=== PATIENT | female | born 1970 | race American Indian/Alaskan Native ===

== ENCOUNTER 2019-08-24 05:55 | Observation (INO) | payer MEDICARE ==
--- NOTE | 2019-08-24 06:39 | XRay Report ---
CHEST 1 VIEW INDICATION / CLINICAL INFORMATION: Chest Pain. COMPARISON: None available. FINDINGS: SUPPORT DEVICES: None. HEART / MEDIASTINUM: No significant abnormality. LUNGS / PLEURA: No significant pulmonary or pleural abnormality.. No pneumothorax. ADDITIONAL FINDINGS: No significant additional findings. IMPRESSION: 1. No acute findings. Signer Name: Rickie Cronin MD Signed: 08/24/2019 6:34 AM Workstation Name: [id number]
[2019-08-24 06:59] LABS: Hematocrit 41.6 % (30.3-42.9); Hemoglobin 13.6 gm/dl (10.1-14.3); Mean Corpuscular HGB Conc 33 % (30-34); Mean Corpuscular Volume 87 fl (79-97); Platelet Count 415 K/mm3 (140-440); Red Blood Count 4.79 M/mm3 (3.65-5.03); Red Cell Distribution Width 12.9 % (13.2-15.2)
[2019-08-24 07:21] LABS: BUN/Creatinine Ratio 14; Blood Urea Nitrogen 13 mg/dL (7-17); Calcium 9.9 mg/dL (8.4-10.2); Hemolysis Index 21
[2019-08-24 08:20] LABS: Basophils % (Manual) 0 % (0.0-1.8); Total Cells Counted 100
[2019-08-24 08:21] LABS: Platelet Estimate Consistent w Auto; RBC Morphology Normal
[2019-08-24] MEDS ORDERED: IPRATROPIUM/ALBUTEROL SULFATE 3 ML AMPUL.NEB IH ONE ×3 (11:13→13:16)
[2019-08-24] MEDS ORDERED: MORPHINE 2 MG/1 ML INJ IV ONE (11:17)
[2019-08-24] MEDS ORDERED: ONDANSETRON 4 MG/2 ML INJ IV ONE (11:17)
[2019-08-24] MEDS ORDERED: methylPREDNISolone Sod Succinate 125 MG/2 ML INJ IV ONE (11:17)
[2019-08-24 11:43] LABS: INR 1.04 (0.87-1.13)
[2019-08-24 11:44] LABS: Partial Thromboplastin Time 30.9 Sec. (24.2-36.6)
[2019-08-24 12:03] LABS: Creatine Kinase MB 2.4 ng/mL (0.0-4.0)
[2019-08-24 12:04] LABS: Alanine Aminotransferase 20 units/L (7-56); Albumin 4.5 g/dL (3.9-5)
[2019-08-24 12:07] LABS: Bilirubin,Direct < 0.2 mg/dL (0-0.2)
--- NOTE | 2019-08-24 13:11 | Cat Scan Report ---
CT chest with contrast INDICATION : chest pain TECHNIQUE: 100 mL of intravenous contrast administered. All CT scans at this location are performed using CT dose reduction for ALARA by means of automated exposure control. COMPARISON: Radiograph performed earlier the same day. FINDINGS: Lungs are clear without evidence of focal pulmonary consolidation or edema. No discrete pulmonary mas s or nodule. No pleural effusion or pneumothorax. No filling defect within the pulmonary arteries to suggest the presence of pulmonary embolism. Heart is within normal limits in terms of size. No evidence of pericardial effusion. No mediastinal or axil navjot lymphadenopathy. Osseous structures show no evidence acute fracture or aggressive osseous destructive lesion. Limited evaluation of the upper abdomen is unremarkable. IMPRESSION: No acute findings within the chest. Specifically, no evidence of pulmonary embolism. Signer Name: Ludin Vasquez MD Signed: 08/24/2019 1:06 PM Workstation Name: [id number]
[2019-08-24] MEDS ORDERED: BENZONATATE 100 MG CAP PO ONE (13:13)
--- NOTE | 2019-08-24 14:04 | Emergency Department Report ---
ED General Adult HPI - General Chief complaint: Chest Pain Stated complaint: CHEST TIGHTNESS/LEG PAIN Time Seen by Provider: 08/24/19 11:04 Source: patient Mode of arrival: Ambulatory Limitations: No Limitations - History of Present Illness Initial comments: This is a 48-year-old female with history of COPD who presents with a complaint of chest pain, nonproductive cough and shortness of breath. The chest pain is somewhat pleuritic. She is been placed on Cipro and then a Z-Sarbjit by her primary care provider Dr. Harvey. She states that she hasn't eaten wheezing. She denies fever or chills. She also states that she had a "partial nephrectomy" in the past. She gives a history of prior anticoagulation for DVT/PE. She has not been on Coumadin for quite some time. I'm not certain that she has informed her primary care doctor of her previous heavy coagulation. She complains of right flank pain and right thigh pain. -: Gradual, week(s) Location: chest, right, lower extremity Radiation: non-radiation Severity scale (0 -10): 5 Quality: other (heaviness) Consistency: intermittent Improves with: none Worsens with: none Associated Symptoms: shortness of breath Treatments Prior to Arrival: none - Related Data Allergies Allergy/AdvReac Type Severity Reaction Status Date / Time No Known Allergies Allergy Verified 08/24/19 13:16 ED Review of Systems ROS: Stated complaint: CHEST TIGHTNESS/LEG PAIN Other details as noted in HPI Constitutional: denies: chills, fever Eyes: denies: eye pain, eye discharge, vision change ENT: denies: ear pain, throat pain Respiratory: cough, shortness of breath, wheezing Cardiovascular: chest pain. denies: palpitations Endocrine: no symptoms reported Gastrointestinal: denies: abdominal pain, nausea, diarrhea Genitourinary: denies: urgency, dysuria, discharge Musculoskeletal: back pain (right flank pain), other (thigh pain). denies: joint swelling, arthralgia Skin: denies: rash, lesions Neurological: denies: headache, weakness, paresthesias Psychiatric: denies: anxiety, depression Hematological/Lymphatic: denies: easy bleeding, easy bruising ED Past Medical Hx - Past Medical History Previous Medical History?: Yes Hx Diabetes: (borderline) Hx Pulmonary Embolism: Yes Hx Asthma: Yes Hx COPD: Yes Additional medical history: renal cell cancer, IC - Surgical History Past Surgical History?: Yes Additional Surgical History: part of kidney removed, sinus surgery, ankle surgery, hysterectomy. - Social History Smoking Status: Never Smoker Substance Use Type: Alcohol ED Physical Exam - General Limitations: No Limitations General appearance: alert, anxious - Head Head exam: Present: atraumatic, normocephalic - Eye Eye exam: Present: normal appearance. Absent: scleral icterus - ENT ENT exam: Present: mucous membranes moist - Neck Neck exam: Present: normal inspection. Absent: tenderness, meningismus - Respiratory Respiratory exam: Present: normal lung sounds bilaterally, wheezes (end expiratory). Absent: respiratory distress, accessory muscle use - Cardiovascular Cardiovascular Exam: Present: normal rhythm, tachycardia. Absent: systolic murmur, diastolic murmur, rubs, gallop - GI/Abdominal GI/Abdominal exam: Present: soft, normal bowel sounds. Absent: distended, tenderness, guarding, rebound, rigid - Extremities Exam Extremities exam: Present: normal inspection, full ROM, normal capillary refill. Absent: tenderness, pedal edema, joint swelling, calf tenderness - Back Exam Back exam: Present: normal inspection - Neurological Exam Neurological exam: Present: alert, oriented X3, CN II-XII intact. Absent: motor sensory deficit - Psychiatric Psychiatric exam: Present: normal affect, normal mood - Skin Skin exam: Present: warm, dry, intact, normal color. Absent: rash ED Course Vital Signs 08/24/19 08/24/19 08/24/19 05:57 11:16 11:25 Temperature 98.8 F Pulse Rate 105 H Pulse Rate [ 80 Right Lower Lobe] Respiratory 20 20 Rate Respiratory 18 Rate [Right Lower Lobe] Blood Pressure 136/95 O2 Sat by Pulse 97 Oximetry - Reevaluation(s) Reevaluation #1: Patient's labs showed a moderately elevated white blood cell count. Thus far no focus of infection has been noted. She does have a dry nonproductive cough. She is noted to have a persistent resting tachycardia of 115 to 120. A thyroid profile will be ordered. Case discussed with Dr. Sosa. Patient is admitted primarily for her chest pain for further diagnostic workup. Her PE study was negative. Her dimer was somewhat elevated. She was given nebs for her COPD exacerbation and Solu-Medrol. 08/24/19 14:40 ED Medical Decision Making - Lab Data Result diagrams: 08/24/19 06:42 08/24/19 06:42 Laboratory Results - last 24 hr 08/24/19 08/24/19 08/24/19 06:42 06:42 09:26 WBC 14.6 H RBC 4.79 Hgb 13.6 Hct 41.6 MCV 87 MCH 29 MCHC 33 RDW 12.9 L Plt Count 415 Lymph # [employer] Add Manual Diff Complete Total Counted 100 Seg Neuts % (Manual) 54.0 Band Neutrophils % 0 Lymphocytes % (Manual) 33.0 Reactive Lymphs % (Man) 0 Monocytes % (Manual) 4.0 Eosinophils % (Manual) 9.0 H Basophils % (Manual) 0 Metamyelocytes % 0 Myelocytes % 0 Promyelocytes % 0 Blast Cells % 0 Nucleated RBC % Not Reportable Seg Neutrophils # Man 7.9 H Band Neutrophils # 0.0 Lymphocytes # (Manual) 4.8 Abs React Lymphs (Man) 0.0 Monocytes # (Manual) 0.6 Eosinophils # (Manual) 1.3 H Basophils # (Manual) 0.0 Metamyelocytes # 0.0 Myelocytes # 0.0 Promyelocytes # 0.0 Blast Cells # 0.0 WBC Morphology Not Reportable Hypersegmented Neuts Not Reportable Hyposegmented Neuts Not Reportable Hypogranular Neuts Not Reportable Smudge Cells Not Reportable Toxic Granulation Not Reportable Toxic Vacuolation Not Reportable Dohle Bodies Not Reportable Pelger-Huet Anomaly Not Reportable Lacey Rods Not Reportable Platelet Estimate Consistent w auto Clumped Platelets Not Reportable Plt Clumps, EDTA Not Reportable Large Platelets Not Reportable Giant Platelets Not Reportable Platelet Satelliting Not Reportable Plt Morphology Comment Not Reportable RBC Morphology Normal Dimorphic RBCs Not Reportable Polychromasia Not Reportable Hypochromasia Not Reportable Poikilocytosis Not Reportable Anisocytosis Not Reportable Microcytosis Not Reportable Macrocytosis Not Reportable Spherocytes Not Reportable Pappenheimer Bodies Not Reportable Sickle Cells Not Reportable Target Cells Not Reportable Tear Drop Cells Not Reportable Ovalocytes Not Reportable Helmet Cells Not Reportable Kumar-[place] Bodies Not Reportable [place] Rings Not Reportable Jaxon Cells Not Reportable Bite Cells Not Reportable Crenated Cell Not Reportable Elliptocytes Not Reportable Acanthocytes (Spur) Not Reportable Rouleaux Not Reportable Hemoglobin C Crystals Not Reportable Schistocytes Not Reportable Malaria parasites Not Reportable Pedro Bodies Not Reportable Hem Pathologist Commnt No PT INR APTT Sodium 141 Potassium 4.1 Chloride 102.8 Carbon Dioxide 24 Anion Gap 18 BUN 13 Creatinine 0.9 Estimated GFR > 60 BUN/Creatinine Ratio 14 Glucose 110 H Calcium 9.9 Magnesium Total Bilirubin Direct Bilirubin Indirect Bilirubin AST ALT Alkaline Phosphatase Total Creatine Kinase CK-MB (CK-2) CK-MB (CK-2) Rel Index Troponin T < 0.010 < 0.010 NT-Pro-B Natriuret Pep Total Protein Albumin Albumin/Globulin Ratio Urine Color Urine Turbidity Urine pH Ur Specific [place] Urine Protein Urine Glucose (UA) Urine Ketones Urine Blood Urine Nitrite Urine Bilirubin Urine Urobilinogen Ur Leukocyte Esterase Urine WBC (Auto) Urine RBC (Auto) U Epithel Cells (Auto) 08/24/19 08/24/19 08/24/19 11:26 11:26 12:59 WBC RBC Hgb Hct MCV MCH MCHC RDW Plt Count Lymph # Add Manual Diff Total Counted Seg Neuts % (Manual) Band Neutrophils % Lymphocytes % (Manual) Reactive Lymphs % (Man) Monocytes % (Manual) Eosinophils % (Manual) Basophils % (Manual) Metamyelocytes % Myelocytes % Promyelocytes % Blast Cells % Nucleated RBC % Seg Neutrophils # Man Band Neutrophils # Lymphocytes # (Manual) Abs React Lymphs (Man) Monocytes # (Manual) Eosinophils # (Manual) Basophils # (Manual) Metamyelocytes # Myelocytes # Promyelocytes # Blast Cells # WBC Morphology Hypersegmented Neuts Hyposegmented Neuts Hypogranular Neuts Smudge Cells Toxic Granulation Toxic Vacuolation Dohle Bodies Pelger-Huet Anomaly Lacey Rods Platelet Estimate Clumped Platelets Plt Clumps, EDTA Large Platelets Giant Platelets Platelet Satelliting Plt Morphology Comment RBC Morphology Dimorphic RBCs Polychromasia Hypochromasia Poikilocytosis Anisocytosis Microcytosis Macrocytosis Spherocytes Pappenheimer Bodies Sickle Cells Target Cells Tear Drop Cells Ovalocytes Helmet Cells Kumar-[place] Bodies [place] Rings Jaxon Cells Bite Cells Crenated Cell Elliptocytes Acanthocytes (Spur) Rouleaux Hemoglobin C Crystals Schistocytes Malaria parasites Pedro Bodies Hem Pathologist Commnt PT 13.7 INR 1.04 APTT 30.9 Sodium Potassium Chloride Carbon Dioxide Anion Gap BUN Creatinine Estimated GFR BUN/Creatinine Ratio Glucose Calcium Magnesium 2.20 Total Bilirubin 0.40 Direct Bilirubin < 0.2 Indirect Bilirubin 0.2 AST 18 ALT 20 Alkaline Phosphatase 86 Total Creatine Kinase 345 H CK-MB (CK-2) 2.4 CK-MB (CK-2) Rel Index 0.6 Troponin T < 0.010 NT-Pro-B Natriuret Pep 11.06 Total Protein 7.7 Albumin 4.5 Albumin/Globulin Ratio 1.4 Urine Color Urine Turbidity Urine pH Ur Specific [place] Urine Protein Urine Glucose (UA) Urine Ketones Urine Blood Urine Nitrite Urine Bilirubin Urine Urobilinogen Ur Leukocyte Esterase Urine WBC (Auto) Urine RBC (Auto) U Epithel Cells (Auto) 08/24/19 Unknown WBC RBC Hgb Hct MCV MCH MCHC RDW Plt Count Lymph # Add Manual Diff Total Counted Seg Neuts % (Manual) Band Neutrophils % Lymphocytes % (Manual) Reactive Lymphs % (Man) Monocytes % (Manual) Eosinophils % (Manual) Basophils % (Manual) Metamyelocytes % Myelocytes % Promyelocytes % Blast Cells % Nucleated RBC % Seg Neutrophils # Man Band Neutrophils # Lymphocytes # (Manual) Abs React Lymphs (Man) Monocytes # (Manual) Eosinophils # (Manual) Basophils # (Manual) Metamyelocytes # Myelocytes # Promyelocytes # Blast Cells # WBC Morphology Hypersegmented Neuts Hyposegmented Neuts Hypogranular Neuts Smudge Cells Toxic Granulation Toxic Vacuolation Dohle Bodies Pelger-Huet Anomaly Lacey Rods Platelet Estimate Clumped Platelets Plt Clumps, EDTA Large Platelets Giant Platelets Platelet Satelliting Plt Morphology Comment RBC Morphology Dimorphic RBCs Polychromasia Hypochromasia Poikilocytosis Anisocytosis Microcytosis Macrocytosis Spherocytes Pappenheimer Bodies Sickle Cells Target Cells Tear Drop Cells Ovalocytes Helmet Cells Kumar-[place]amo Bodies [place] Rings Jaxon Cells Bite Cells Crenated Cell Elliptocytes Acanthocytes (Spur) Rouleaux Hemoglobin C Crystals Schistocytes Malaria parasites Pedro Bodies Hem Pathologist Commnt PT INR APTT Sodium Potassium Chloride Carbon Dioxide Anion Gap BUN Creatinine Estimated GFR BUN/Creatinine Ratio Glucose Calcium Magnesium Total Bilirubin Direct Bilirubin Indirect Bilirubin AST ALT Alkaline Phosphatase Total Creatine Kinase CK-MB (CK-2) CK-MB (CK-2) Rel Index Troponin T NT-Pro-B Natriuret Pep Total Protein Albumin Albumin/Globulin Ratio Urine Color Yellow Urine Turbidity Clear Urine pH 6.0 Ur Specific [place] TNR Urine Protein <15 mg/dl Urine Glucose (UA) Neg Urine Ketones Tr Urine Blood Neg Urine Nitrite Neg Urine Bilirubin Neg Urine Urobilinogen < 2.0 Ur Leukocyte Esterase Neg Urine WBC (Auto) 1.0 Urine RBC (Auto) 1.0 U Epithel Cells (Auto) 9.0 - EKG Data -: EKG Interpreted by Ar EKG shows normal: sinus rhythm, axis, intervals, QRS complexes, ST-T waves Rate: normal - EKG Data Interpretation: normal EKG - Radiology Data Radiology results: report reviewed (CTA no acute findings) Critical care attestation.: If time is entered above; I have spent that time in minutes in the direct care of this critically ill patient, excluding procedure time. ED Disposition Clinical Impression: COPD exacerbation Chest pain Qualifiers: Chest pain type: unspecified Qualified Code(s): R07.9 - Chest pain, unspecified Disposition: OP ADMIT IP TO THIS HOSP Is pt being admited?: Yes Does the pt Need Aspirin: Yes Condition: Stable Instructions: Chest Pain (ED), Chronic Obstructive Pulmonary Disease (ED) Referrals: NITISH HARVEY MD [Primary Care Provider] - 3-5 Days Time of Disposition: 14:42
[2019-08-24 14:10] LABS: Bilirubin,Urine NEG (Negative); Blood,Urine NEG (Negative); Color,Urine Yellow (Yellow); Protein,Urine <15 mg/dL mg/dL (Negative); Urobilinogen,Urine < 2.0 mg/dL (<2.0)
[2019-08-24] MEDS ORDERED: ASPIRIN 325 MG TAB PO ONE (14:42)
[2019-08-24] MEDS ORDERED: PANTOPRAZOLE 40 MG INJ IV ONE ×2 (14:43→15:57)
[2019-08-24 15:55] LABS: Free T4 (Free Thyroxine) 1.53 ng/dL (0.76-1.46)
[2019-08-24] MEDS ORDERED: ASPIRIN 325 MG TAB ONE (15:57)
[2019-08-24] MEDS: oxyCODONE /ACETAMINOPHEN 5-325MG TAB PO PRN (21:36)
[2019-08-24] MEDS: methylPREDNISolone Sod Succinate 40 MG/1 ML INJ IV SCH (23:28)
[2019-08-24] MEDS: ALPRAZolam 1 MG TAB PO SCH (23:33)
[2019-08-25] MEDS ORDERED: IPRATROPIUM/ALBUTEROL SULFATE 3 ML AMPUL.NEB IH SCH
[2019-08-25] MEDS: oxyCODONE /ACETAMINOPHEN 5-325MG TAB PO PRN ×2 (03:55→10:49)
[2019-08-25] MEDS: methylPREDNISolone Sod Succinate 40 MG/1 ML INJ IV SCH ×2 (05:34→14:02)
[2019-08-25] MEDS: ALBUTEROL 2.5 MG/3 ML NEBU IH PRN ×2 (05:50→18:02)
--- NOTE | 2019-08-25 06:57 | Event Note ---
Date: 08/24/19 See H/p in reports COPD exacerbation
[2019-08-25] MEDS ORDERED: ESTRADIOL 0.05 MG TP SCH (07:15)
[2019-08-25] MEDS ORDERED: METHOTREXATE 10 MG PO SCH (08:00)
[2019-08-25] MEDS: IPRATROPIUM/ALBUTEROL SULFATE 3 ML AMPUL.NEB IH SCH ×2 (08:10→14:29)
--- NOTE | 2019-08-25 08:12 | History and Physical Report ---
CHIEF COMPLAINT: 1. Chest pain. 2. Shortness of breath and cough productive of sputum. HISTORY OF PRESENT ILLNESS: A 48-year-old -Stateless female well known to me from office, comes in for cough and shortness of breath. Cough productive of mucoid to yellow sputum. She was recently given a Z-KATIE by me, but no improvement. The patient has been having tightness in the chest. No chest pain. The patient had partial nephrectomy in the past. The patient also has a history of PE/DVT in the past, for which she was on anticoagulation, but not on anticoagulation. Also, complains of right flank pain and right thigh pain. The main complaint is shortness of breath, wheezing and cough productive of mucoid to yellow sputum. PAST MEDICAL HISTORY: Significant for type 2 diabetes, hypertension, asthma, COPD, history of renal cell cancer. Also, interstitial cystitis. PAST SURGICAL HISTORY: Part of kidney removed, sinus surgery, ankle surgery, hysterectomy. SOCIAL HISTORY: Does not smoke. Alcohol occasionally. FAMILY HISTORY: Hypertension. REVIEW OF SYSTEMS: Significant for cough productive of mucoid sputum to severe shortness of breath and wheezing. PHYSICAL EXAMINATION: GENERAL: Middle-aged female, cooperative during examination. VITAL SIGNS: Blood pressure is 139/83, temperature is 98.3, pulse is 101, respirations are 15, sats are 97%. HEENT: Unremarkable. Pupils equal and reactive. NECK: Supple, no lymphadenopathy, no thyromegaly. LUNGS: Clear to auscultation and percussion. Good air entry. CARDIOVASCULAR SYSTEM: S1, S2 heard. No gallop, no murmur, no rub. Apical impulse in left fifth intercostal space and midclavicular line. RESPIRATORY SYSTEM: Bilateral inspiratory and expiratory rhonchi present. ABDOMEN: Soft and benign. No hepatosplenomegaly. No guarding, no rigidity. Hernial orifices are normal. EXTREMITIES: Good pedal pulses. No pedal edema. CENTRAL NERVOUS SYSTEM: Alert and oriented x 4, nonfocal exam. SKIN: Normal. LABORATORY DATA: White count of 14,600, H and H is 13.6 and 41.6. Platelet count is 415,000. Electrolytes are normal. Glucose is slightly high at 110. CK is 345. LFTs are normal. TSH is normal. Urine normal. Chest x-ray shows no acute findings. CTA of the chest shows no PE. EKG normal sinus rhythm. ASSESSMENT AND PLAN: 1. Chronic obstructive pulmonary disease exacerbation. The patient is initiated on intravenous Levaquin, intravenous Solu-Medrol and DuoNeb around the clock. 2. Respiratory failure. The patient is tachypneic. Sats were low initially which have improved 3. RA -- Continue methotrexate. 4. Vitamin D deficiency. Continue cholecalciferol. 5. Gastroesophageal reflux disease. Continue Nexium. 6. Estrogen deficiency. Continue estradiol. 7. Hypertension. Continue antihypertensives. 8. Deep venous thrombosis prophylaxis. Heparin 5000 q. 12. 9. Generalized anxiety disorder. Continue Xanax. 10. Chronic pain. Continue Percocet. JOB# [id number] STEPHENIE/DUSTIN GARCIA
[2019-08-25] MEDS ORDERED: FOLIC ACID 1 MG TAB PO SCH (10:00)
[2019-08-25] MEDS ORDERED: PANTOPRAZOLE 40 MG TAB PO SCH (10:00)
[2019-08-25] MEDS ORDERED: NON-FORMULARY EACH (Esomeprazole Magnesium [Nexium] 40 MG) PO SCH (10:00)
[2019-08-25] MEDS: ALPRAZolam 1 MG TAB PO SCH (10:50)
[2019-08-25] MEDS ORDERED: SODIUM CHLORIDE 0.45% IV SCH ×2 (12:00)
--- NOTE | 2019-08-25 16:02 | Discharge Summary ---
Providers - Providers Date of Admission: 08/24/19 14:43 Date of discharge: 08/25/19 Attending physician: JOSE ARANDA Primary care physician: NITISH HARVEY Hospitalization Condition: Stable Hospital course: Patient is a 48 yo woman with a history of COPD, anxiety, Renal Cell cancer s/p right partial nephrectomy, asthma and DM type who presents with multiple complaints. Right sided chest pains and coughing. She has multiple somatic compliants. Discharge Diagnoses: -Acute anxiety disorder -AE COPD, mild -No respiratory failure -MDD: she took herself off zoloft and her symptoms are worse Disposition: DC-01 TO HOME OR SELFCARE Time spent for discharge: 35 minutes Core Measure Documentation - Palliative Care Palliative Care/ Comfort Measures: Not Applicable - Core Measures Any of the following diagnoses?: none - VTE Discharge Requirements Deep Vein Thrombosis/Pulmonary Embolism Present on Admission: No Has pt received <5 days of overlap therapy or INR<2.0: No Anticoagulant overlap therapy prescribed at discharge: No Contraindication No Overlap Therapy order at DC: Not Indicated Exam - Physical Exam Narrative exam: Gen: WDWN, NAD, Awake, Alert, Orientated HEENT: NCAT, EOMI, PERRL, OP Clear Neck: supple, no adenopathy, no thyromegaly, no JVD CVS/Heart: RRR, normal S1S2, pulses present bilaterally Chest/Lungs: CTA B, Symmetrical chest expansion, good air entry bilaterally GI/Abdomen: soft, NTND, good bowel sounds, no guarding or rebound /Bladder: no suprapubic tenderness, no CVA or paraspinal tenderness Extermity/Skin: no c/c/e, no obvious rash MSK: FROM x 4 Neuro: CN 2-12 grossly intact, no new focal deficits Psych: calm - Constitutional Vitals: Temp Pulse Resp BP Pulse Ox 98.0 F 111 H 20 146/87 96 08/25/19 11:43 08/25/19 14:29 08/25/19 14:29 08/25/19 11:43 08/25/19 11:43 Plan Activity: other (no strenous activity unless cleared activity) Diet: low salt Follow up with: NITISH HARVEY MD [Primary Care Provider] - 3-5 Days Prescriptions: levoFLOXacin [Levaquin] 750 mg PO QDAY #7 tablet methylPREDNISolone [Medrol 4MG DOSEPAK (21 tabs)] 1 dose PO DAILY #1 tab.ds.pk oxyCODONE /ACETAMINOPHEN [Percocet 5/325 mg] 1 tab PO Q6H PRN #15 tablet PRN Reason: Pain , Severe (7-10) ALBUTEROL NEB's [Proventil 0.083% NEBS] 2.5 mg IH QID PRN #30 PRN Reason: Wheezing Benzonatate [Tessalon Perles] 100 mg PO Q8HR PRN #15 capsule PRN Reason: Cough ALPRAZolam [Xanax TAB] 1 mg PO BID #14 tablet Sertraline [Zoloft] 25 mg PO QDAY #30 tab Ipratropium/Albuterol Sulfate [DUONEB *Not for PRN Use*] 1 ampul IH TIDRT #30 ampul.neb
[2019-08-25] MEDS ORDERED: FLU VACC QUAD 2019-20 (3 YR UP)/PF 60 MCG/0.5 ML SYRINGE IM ONE (16:21)
[2019-08-25] MEDS ORDERED: PNEUMOCOCCAL 23 Valent 0.5 ML VIAL IM ONE (16:21)
[2019-08-25 17:58] VITALS: BP 154/97
== END 2019-08-25 18:20 | disposition home or self-care (01) ==
LOC: ED 05:55 → 3A 14:43
PROVIDERS: ADMIT Internal Medicine; ATTEND Internal Medicine
DX: J44.1 Chronic obstructive pulmonary disease with (acute) exacerbation (principal); R07.9 Chest pain, unspecified; J96.90 Respiratory failure, unspecified, unspecified whether with hypoxia or hypercapnia; M06.9 Rheumatoid arthritis, unspecified; E55.9 Vitamin D deficiency, unspecified; K21.9 Gastro-esophageal reflux disease without esophagitis; E28.39 Other primary ovarian failure; I10 Essential (primary) hypertension; F41.1 Generalized anxiety disorder; F32.9 Major depressive disorder, single episode, unspecified; G89.29 Other chronic pain; E11.9 Type 2 diabetes mellitus without complications; Z85.53 Personal history of malignant neoplasm of renal pelvis; Z79.899 Other long term (current) drug therapy; Z23 Encounter for immunization
CPT/HCPCS: 36415; 71045; 71275; 80048; 80076; 81001; 82550; 82553; 83735; 83880; 84439; 84443; 84484; 85007; 85025; 85610; 85730; 90686; 90732; 93005; 93010; 94640; 94644; 96365; 96375; 96376; 99284; C9113; G0008; G0009; G0378; J1956; J2270; J2405; J2920; J2930; J7030; Q9967; 90471